=== PATIENT | female | born 1995 | race African-American/Black ===

== ENCOUNTER 2018-12-07 23:41 | Inpatient (IN) ==
[2018-12-07] MEDS ORDERED: ONDANSETRON 4 MG/2 ML VIAL IV PRN (23:57)
[2018-12-07] MEDS ORDERED: LACTATED RINGERS 500 ML IV PRN (23:57)
[2018-12-07] MEDS ORDERED: OXYTOCIN/LR 20 UNIT/1,000 ML BAG IV PRN (23:57)
[2018-12-08 00:26] LABS: Basophils % 0.2 % (0.0-0.8); Eosinophils # 0.1 10*3/uL (0.0-0.87); Eosinophils % 0.6 % (0.00-10.9); Hematocrit 35.4 VOL% (35.7-47.0); Hemoglobin 11.2 GM/DL (12.0-16.0); Immature Granulocytes % 0.7 %; Immature Granulocytes Absolute 0.08 #; Lymphocytes # 2.5 10*3/uL (1.4-4.0); Lymphocytes % 22.9 % (21.3-54.2); Mean Corpuscular HGB Conc 31.6 GM/DL (32-36); Mean Corpuscular Volume 85.3 FL (87-102); Mean Platelet Volume 10.4 FL (9.6-12.0); Monocytes % 7.4 % (1.7-12.7); Neutrophils % 68.2 % (38.7-73.9); Platelet Count 266 T/CUMM (130-400); Red Blood Count 4.15 MC/CUMM (3.8-5.5); Red Cell Distribution Width 13.9 % (9.3-17.3)
[2018-12-08 00:33] LABS: Apearance,Urine CLEAR (Clear); Bilirubin,Urine Negative (Negative); Blood, Urine Negative (Negative); Glucose,Urine (UA) Negative (Negative); Ketones,Urine 5 mg/dL (Negative); Mucus,Urine Moderate /LPF (Occasional); Nitrite,Urine Negative (Negative); Protein,Urine Negative; RBC,Urine 1 /HPF (0-4); Squamous Epithelial Cell,Urine Occasional /HPF (0-10); Urine Color Yellow (Yellow); Urine Specific Gravity 1.026 (1.001-1.035); Urine Urobilinogen < 2.0 EU/DL (0.2-1.0); WBC,Urine 3 /HPF (0-6)
[2018-12-08 00:43] LABS: Alanine Aminotransferase 12 U/L (13-56); Albumin 2.7 G/DL (3.4-5.0); Alkaline Phosphatase 117 U/L (45-117); Aspartate Amino Transferase 9 U/L (0-37); Bilirubin,Total < 0.39 MG/DL (0.2-1.0); Blood Urea Nitrogen 9 MG/DL (7-18); Calcium 9.4 MG/DL (8.5-10.1); Estimated Glom Filtration Rate 162 ML/MIN; Glucose 92 MG/DL (74-106); Osmolality,Calculated 277.4 MOS/KG (273-304); Total Protein 7.1 G/DL (6.4-8.3)
[2018-12-08] MEDS: LACTATED RINGERS 1,000 ML IV SCH ×2 (00:45→10:18)
[2018-12-08] MEDS ORDERED: TERBUTALINE 1 MG/1 ML VIAL SUBCUT ONE (01:55)
[2018-12-08] MEDS: MEPERIDINE 50 MG/1 ML VIAL IV PRN ×2 (08:44→10:47)
[2018-12-08] MEDS ORDERED: miSOPROStoL 200 MCG TABLET ONE (11:39)
[2018-12-08] MEDS ORDERED: LIDOCAINE 1% 50 ML VIAL ONE (11:39)
[2018-12-08] MEDS ORDERED: MAGNESIUM HYDROXIDE SUSP 30 ML UDCUP PO PRN (12:22)
[2018-12-08] MEDS ORDERED: BISACODYL 10 MG SUPP RECTAL PRN (12:22)
[2018-12-08] MEDS ORDERED: LACTATED RINGERS 1,000 ML IV SCH (12:30)
[2018-12-08] MEDS ORDERED: IBUPROFEN 800 MG TABLET PO SCH (12:30)
[2018-12-08] MEDS ORDERED: BENZOCAINE 20%/MENTHOL 0.5% SPRAY 56 GM CAN TOP PRN (14:50)
[2018-12-08] MEDS: KETOROLAC 15 MG/1 ML VIAL IV SCH ×2 (14:50→19:24)
[2018-12-08] MEDS: DOCUSATE SODIUM 100 MG CAPSULE PO SCH (21:21)
[2018-12-09 02:59] LABS: Basophils % 0.1 % (0.0-0.8); Eosinophils % 0.1 % (0.00-10.9); Hematocrit 29.3 VOL% (35.7-47.0); Hemoglobin 9.2 GM/DL (12.0-16.0); Immature Granulocytes % 0.4 %; Immature Granulocytes Absolute 0.05 #; Lymphocytes # 1.9 10*3/uL (1.4-4.0); Lymphocytes % 13.9 % (21.3-54.2); Mean Corpuscular HGB Conc 31.4 GM/DL (32-36); Mean Corpuscular Volume 85.7 FL (87-102); Mean Platelet Volume 10.8 FL (9.6-12.0); Monocytes % 7.4 % (1.7-12.7); Neutrophils % 78.1 % (38.7-73.9); Platelet Count 203 T/CUMM (130-400); Red Blood Count 3.42 MC/CUMM (3.8-5.5); Red Cell Distribution Width 14.2 % (9.3-17.3); White Blood Count 13.7 T/CUMM (4-12)
[2018-12-09] MEDS: KETOROLAC 15 MG/1 ML VIAL IV SCH ×2 (03:42→07:00)
[2018-12-09] MEDS ORDERED: INFLUENZA VIRUS VACCINE 0.5 ML SYRINGE IM ONE (07:00)
[2018-12-09] MEDS: MULTIVITAMIN (PRENATAL) TABLET PO SCH (10:34)
[2018-12-09] MEDS: DOCUSATE SODIUM 100 MG CAPSULE PO SCH ×2 (10:34→21:09)
[2018-12-09] MEDS: IBUPROFEN 800 MG TABLET PO SCH ×3 (13:00→21:09)
[2018-12-09] MEDS: IRON (CARBONYL)/VIT C/B12/FA TABLET PO SCH (15:02)
[2018-12-10] MEDS: IBUPROFEN 800 MG TABLET PO SCH ×2 (04:30→14:43)
[2018-12-10] MEDS: IRON (CARBONYL)/VIT C/B12/FA TABLET PO SCH (09:15)
[2018-12-10] MEDS: DOCUSATE SODIUM 100 MG CAPSULE PO SCH (09:15)
[2018-12-10] MEDS: MULTIVITAMIN (PRENATAL) TABLET PO SCH (09:15)
[2018-12-10 11:58] VITALS: BP 127/53
[2018-12-10] MEDS ORDERED: DIPHTHERIA/TETANUS ADULT VACCINE 0.5 ML SYRINGE IM ONE (13:24)
[2018-12-10] MEDS ORDERED: DIPH/TET/ACEL PERT BOOSTER VACCINE 0.5 ML VIAL IM ONE (13:30)
== END 2018-12-10 14:30 | disposition home or self-care (01) | DRG 560 ==
LOC: N.LDOUT 23:41 → N.LD 23:43 → N.OB 12-08 14:50
PROVIDERS: ADMIT Nurse Practitioner; ATTEND Obstetrics & Gynecology

== ENCOUNTER 2020-03-19 20:57 | Inpatient (IN) ==
[2020-03-19] MEDS ORDERED: MEPERIDINE 50 MG/1 ML VIAL IV PRN (21:18)
[2020-03-19] MEDS ORDERED: ONDANSETRON 4 MG/2 ML VIAL IV PRN (21:18)
[2020-03-19 21:50] LABS: Basophils % 0.4 % (0.0-0.8); Eosinophils % 0.3 % (0.00-10.9); Hematocrit 29.6 VOL% (35.7-47.0); Hemoglobin 9.3 GM/DL (12.0-16.0); Immature Granulocytes % 0.7 %; Immature Granulocytes Absolute 0.08 #; Lymphocytes # 1.9 10*3/uL (1.4-4.0); Lymphocytes % 16.7 % (21.3-54.2); Mean Corpuscular HGB Conc 31.4 GM/DL (32-36); Mean Corpuscular Volume 83.1 FL (87-102); Mean Platelet Volume 9.1 FL (9.6-12.0); Monocytes % 4.9 % (1.7-12.7); Platelet Count 255 T/CUMM (130-400); Red Blood Count 3.56 MC/CUMM (3.8-5.5); Red Cell Distribution Width 13.6 % (9.3-17.3); White Blood Count 11.3 T/CUMM (4-12)
[2020-03-19 21:58] LABS: Bacteria,Urine Occasional /HPF (Few); Bilirubin,Urine Negative (Negative); Blood, Urine Negative (Negative); Glucose,Urine (UA) Negative (Negative); Ketones,Urine 80 mg/dL (Negative); Mucus,Urine Few /LPF (Occasional); Nitrite,Urine Negative (Negative); Protein,Urine 30 MG/DL; Squamous Epithelial Cell,Urine Moderate /HPF (0-10); Urine Appearance CLOUDY (Clear); Urine Color Yellow (Yellow); Urine Specific Gravity 1.027 (1.001-1.035); Urine Urobilinogen < 2.0 EU/DL (0.2-1.0); WBC,Urine 14 /HPF (0-6)
[2020-03-19 22:12] LABS: Albumin 2.8 G/DL (3.4-5.0); Bilirubin,Total 0.4 MG/DL (0.2-1.0); Total Protein 7.2 G/DL (6.4-8.3)
[2020-03-20] MEDS: LACTATED RINGERS 1,000 ML IV SCH ×2 (00:14→05:46)
[2020-03-20] MEDS: BUTORPHANOL 2 MG/ML VIAL IV PRN ×2 (05:46→09:12)
[2020-03-20] MEDS ORDERED: TERBUTALINE 1 MG/1 ML VIAL SUBCUT PRN (06:23)
[2020-03-20] MEDS ORDERED: miSOPROStoL 200 MCG TABLET ONE (09:46)
[2020-03-20] MEDS ORDERED: OXYTOCIN/LR 20 UNIT/1,000 ML BAG IV ONE (09:51)
[2020-03-20 10:09] LABS: Cord Venous Blood HCO3 24.4 MMOL/L; Cord Venous Blood PCO2 54.9 MMHG; Cord Venous Blood PO2 30.7 MMHG
[2020-03-20] MEDS ORDERED: ACETAMINOPHEN 500 MG TABLET PO PRN (13:33)
[2020-03-20] MEDS ORDERED: MAGNESIUM HYDROXIDE SUSP 30 ML UDCUP PO PRN (13:33)
[2020-03-20] MEDS ORDERED: ONDANSETRON 4 MG/2 ML VIAL IV PRN (13:33)
[2020-03-20] MEDS ORDERED: BISACODYL 10 MG SUPP RECTAL PRN (13:33)
[2020-03-20] MEDS ORDERED: LACTATED RINGERS 1,000 ML IV SCH (14:00)
[2020-03-20] MEDS: DOCUSATE SODIUM 100 MG CAPSULE PO SCH (20:07)
[2020-03-21] MEDS: IBUPROFEN 800 MG TABLET PO PRN ×2 (01:10→20:22)
[2020-03-21 03:56] LABS: Basophils % 0.1 % (0.0-0.8); Eosinophils # 0.1 10*3/uL (0.0-0.87); Eosinophils % 0.4 % (0.00-10.9); Hematocrit 26.1 VOL% (35.7-47.0); Hemoglobin 8.3 GM/DL (12.0-16.0); Immature Granulocytes % 0.7 %; Immature Granulocytes Absolute 0.09 #; Lymphocytes # 2.1 10*3/uL (1.4-4.0); Lymphocytes % 15.9 % (21.3-54.2); Mean Corpuscular HGB Conc 31.8 GM/DL (32-36); Mean Corpuscular Volume 80.8 FL (87-102); Mean Platelet Volume 9.7 FL (9.6-12.0); Monocytes % 9.7 % (1.7-12.7); NRBC # 0.02 10*3/uL; Neutrophils % 73.2 % (38.7-73.9); Platelet Count 207 T/CUMM (130-400); Red Blood Count 3.23 MC/CUMM (3.8-5.5); Red Cell Distribution Width 13.6 % (9.3-17.3); White Blood Count 13.4 T/CUMM (4-12)
[2020-03-21] MEDS: IRON (CARBONYL)/VIT C/B12/FA TABLET PO SCH ×2 (08:31→08:32)
[2020-03-21] MEDS: DOCUSATE SODIUM 100 MG CAPSULE PO SCH ×2 (08:32→20:22)
[2020-03-21] MEDS: MULTIVITAMIN (PRENATAL) TABLET PO SCH (08:32)
[2020-03-22] MEDS: IRON (CARBONYL)/VIT C/B12/FA TABLET PO SCH (09:27)
[2020-03-22] MEDS: MULTIVITAMIN (PRENATAL) TABLET PO SCH (09:28)
[2020-03-22] MEDS: DOCUSATE SODIUM 100 MG CAPSULE PO SCH (09:28)
[2020-03-22 10:35] VITALS: BP 117/62
[2020-03-22] MEDS ORDERED: MEASLES/MUMPS/RUBELLA VACCINE 0.5 ML VIAL SUBCUT ONE (10:52)
[2020-03-22] MEDS ORDERED: DIPH/TET/ACEL PERT BOOSTER VACCINE 0.5 ML VIAL IM ONE (12:11)
[2020-03-22] MEDS ORDERED: INFLUENZA VIRUS VACCINE 0.5 ML SYRINGE IM ONE (12:11)
== END 2020-03-22 13:35 | disposition home or self-care (01) | DRG 560 ==
LOC: N.LDOUT 20:57 → N.LD 20:59 → N.OB 03-20 11:26
PROVIDERS: ADMIT Obstetrics & Gynecology; ATTEND Obstetrics & Gynecology

== ENCOUNTER 2020-10-27 18:40 | Observation (INO) ==
[2020-10-27] MEDS ORDERED: ONDANSETRON 4 MG/2 ML VIAL IV STA (19:15)
[2020-10-27] MEDS ORDERED: LACTATED RINGERS 500 ML IV STA (19:15)
[2020-10-27] MEDS ORDERED: HYDROmorphone 2 MG/1 ML VIAL IV STA (19:15)
[2020-10-27 21:00] LABS: Alanine Aminotransferase 58 U/L (13-56); Alkaline Phosphatase 54 U/L (45-117); Amylase 70 U/L (25-115); Aspartate Amino Transferase 73 U/L (0-37); Basophils % 0.2 % (0.0-0.8); Blood Urea Nitrogen 9 MG/DL (7-18); Calcium 8.6 MG/DL (8.5-10.1); Carbon Dioxide 25 MMOL/L (21-32); Eosinophils % 0.2 % (0.00-10.9); Estimated Glom Filtration Rate 131 ML/MIN; Glucose 83 MG/DL (74-106); Hematocrit 42.2 VOL% (35.7-47.0); Hemoglobin 12.7 GM/DL (12.0-16.0); Immature Granulocytes % 0.6 %; Immature Granulocytes Absolute 0.08 #; Lymphocytes # 1.3 10*3/uL (1.4-4.0); Mean Corpuscular HGB Conc 30.1 GM/DL (32-36); Mean Corpuscular Volume 85.6 FL (87-102); Mean Platelet Volume 10.4 FL (9.6-12.0); Osmolality,Calculated 272.7 MOS/KG (273-304); Platelet Count 277 T/CUMM (130-400); Potassium 3.6 MMOL/L (3.5-5.1); Red Blood Count 4.93 MC/CUMM (3.8-5.5); Red Cell Distribution Width 14.8 % (9.3-17.3); Sodium 138 MMOL/L (136-145); Total Protein 7.4 G/DL (6.4-8.2); White Blood Count 12.7 T/CUMM (4-12)
[2020-10-27] MEDS ORDERED: LIDOCAINE 1%/EPI INJ 20 ML VIAL ONE (21:01)
[2020-10-27 21:04] LABS: Bilirubin,Urine Negative (Negative); Blood, Urine Large mg/dL (Negative); Glucose,Urine (UA) Negative (Negative); Ketones,Urine Negative (Negative); Mucus,Urine Many /LPF (Occasional); Nitrite,Urine Negative (Negative); Protein,Urine 30 MG/DL; RBC,Urine 551 /HPF (0-4); Squamous Epithelial Cell,Urine Occasional /HPF (0-10); Urine Appearance CLEAR (Clear); Urine Color Yellow (Yellow); Urine Urobilinogen < 2.0 EU/DL (0.2-1.0)
[2020-10-27] MEDS ORDERED: LIDOCAINE 1%/EPI INJ 20 ML VIAL INFILTRAT STA (21:05)
[2020-10-27 21:12] LABS: Barbiturates Screen,Urine Negative (Negative); Benzodiazepines Screen,Urine Negative (Negative); Cannabinoid Screen,Urine Negative (Negative); Opiate Screen,Urine Negative (Negative); Phencyclidine Screen,Urine Negative (Negative)
[2020-10-27] MEDS ORDERED: HYDROmorphone 2 MG/1 ML VIAL IV PRN (23:42)
[2020-10-27] MEDS ORDERED: ONDANSETRON 4 MG/2 ML VIAL IV PRN (23:42)
[2020-10-27] MEDS ORDERED: ACETAMINOPHEN 325 MG TABLET PO PRN (23:42)
[2020-10-28] MEDS: SODIUM CHLORIDE 0.9% 1,000 ML IV SCH ×3 (00:43→21:06)
[2020-10-28] MEDS: METHOCARBAMOL INJ 1,000 MG in SODIUM CHLORIDE 0.9% 100 ML IV SCH ×3 (00:43→19:15)
[2020-10-28 06:18] LABS: Albumin 3.2 G/DL (3.4-5.0); Bilirubin,Total 0.8 MG/DL (0.20-1.00); Calcium 8.5 MG/DL (8.5-10.1); Potassium 3.5 MMOL/L (3.5-5.1); Total Protein 6.2 G/DL (6.4-8.2)
[2020-10-28] MEDS ORDERED: fentaNYL 100 MCG/2 ML VIAL ONE (07:09)
[2020-10-28] MEDS ORDERED: LIDOCAINE 2% 5 ML VIAL ONE (07:11)
[2020-10-28] MEDS ORDERED: ROCURONIUM 50 MG/5 ML VIAL IV ONE (07:11)
[2020-10-28] MEDS ORDERED: SEVOFLURANE 1 UNIT/15 MINUTE INH ONE (07:11)
[2020-10-28] MEDS ORDERED: propofoL 200 MG/20 ML VIAL IV ONE (07:11)
[2020-10-28] MEDS ORDERED: MIDAZOLAM 2 MG/2 ML VIAL ONE (07:45)
[2020-10-28] MEDS ORDERED: SUCCINYLCHOLINE 200 MG/10 ML VIAL ONE (07:49)
[2020-10-28] MEDS ORDERED: KETOROLAC 30 MG/1 ML VIAL ONE (08:00)
[2020-10-28] MEDS ORDERED: PHENYLEPHRINE 1 MG/10 ML SYRINGE IV ONE (08:00)
[2020-10-28] MEDS ORDERED: DEXAMETHASONE 4 MG/1 ML VIAL ONE (08:00)
[2020-10-28] MEDS ORDERED: ONDANSETRON 4 MG/2 ML VIAL ONE (08:00)
[2020-10-28] MEDS ORDERED: LACTATED RINGERS 1,000 ML IV ONE (08:01)
[2020-10-28] MEDS ORDERED: MEPERIDINE 25 MG/1 ML VIAL IV PRN (08:31)
[2020-10-28] MEDS ORDERED: PROMETHAZINE INJ 25 MG in SODIUM CHLORIDE 0.9% 50 ML IV PRN (08:31)
[2020-10-28] MEDS ORDERED: ONDANSETRON 4 MG/2 ML VIAL IV PRN ×2 (08:31→09:52)
[2020-10-28] MEDS ORDERED: HYDROmorphone 2 MG/1 ML VIAL IV PRN ×3 (08:31→09:52)
[2020-10-28] MEDS ORDERED: diphenhydrAMINE 50 MG/1 ML VIAL IV PRN (08:31)
[2020-10-28] MEDS: PANTOPRAZOLE 40 MG TABLET PO SCH (11:00)
[2020-10-28] MEDS: MULTIVITAMIN (CENTRUM) TABLET PO SCH (11:00)
[2020-10-28] MEDS: KETOROLAC 15 MG/1 ML VIAL IV SCH ×3 (12:00→22:52)
[2020-10-29] MEDS: METHOCARBAMOL INJ 1,000 MG in SODIUM CHLORIDE 0.9% 100 ML IV SCH ×2 (01:29→10:03)
[2020-10-29] MEDS: KETOROLAC 15 MG/1 ML VIAL IV SCH ×2 (04:56→10:03)
[2020-10-29] MEDS: SODIUM CHLORIDE 0.9% 1,000 ML IV SCH (05:06)
[2020-10-29] MEDS: PANTOPRAZOLE 40 MG TABLET PO SCH (10:01)
[2020-10-29] MEDS: MULTIVITAMIN (CENTRUM) TABLET PO SCH (10:01)
[2020-10-29 14:37] VITALS: BP 110/65
== END 2020-10-29 15:21 | disposition home or self-care (01) ==
LOC: EDBD → EDUNIT# → N.EDINP 18:40 → N.ED 18:40 → N.3E 22:38
PROVIDERS: ADMIT Surgery; ATTEND Surgery